=== PATIENT | male | born 1950 | race Caucasian/White ===

== ENCOUNTER → 2016-10-25 | Outpatient (CLI) | payer MEDICARE, BC ==
--- NOTE | ~2016-10-25 | US77 ---
[facility] RADIOLOGY TEXT RESULTS PATIENT: RONALD HOGAN III LOCATION: [facility] : 46 UNIT #: [id number] AGE: [address]: Kaleb Sumner MD SEX: M ORDER DR: [id number] [facility]. [place], [place] [address] [id number] O MR#: [id number] Acc #: [id number] NAME: RONALD HOGAN : 1950 SEX: M STUDY DATE/TIME: 10/25/2016 12:45 UNIT: [facility] ROOM: STUDY DESCRIPTION: US Kidney Bilateral Complete Attending Physician: Kaleb Sumner M.D. Referring Physician: Kaleb Sumner M.D. Ordering Physician: Kaleb Sumner M.D. Primary Care Physician: Kaleb Sumner M.D. MEDICAL IMAGING REPORT This report is preliminary unless electronic signature is present EXAM Renal ultrasound INDICATION Elevated creatinine. Creatinine is 1.7. Patient has a history of diabetes type 1, hypertension and hyperlipidemia. TECHNIQUE Dorsey-scale and color Doppler sonographic images were obtained through the kidneys and bladder. FINDINGS Both kidneys measure within normal size limits. I do think they are somewhat echogenic which may reflect underlying chronic medical renal disease. No definite solid or cystic renal masses are seen. There is no hydronephrosis. Urinary bladder appears normal. IMPRESSION Both kidneys I think appear somewhat echogenic which may reflect some underlying chronic medical renal disease. No hydronephrosis is identified. Dictated by... Briana Hollis M.D. THIS IS AN ELECTRONICALLY VERIFIED REPORT Briana Hollis M.D. at 10/26/2016 5:50 PM AFF/mjs TD: 10/26/2016 12:01 JOB #: [id number] MEDICAL IMAGING REPORT [facility] A Service of [facility] RADIOLOGY TEXT RESULTS PATIENT: RONALD HOGAN III LOCATION: [facility] #: [id number] : 46 UNIT #: [id number] AGE: [address]: Kaleb Sumner MD SEX: M ORDER DR: Page 1 of 1 COPY
== END | disposition home or self-care (01) ==
LOC: CGUS 12:20
DX: N18.9 Chronic kidney disease, unspecified (principal)
CPT/HCPCS: 76770